=== PATIENT | male | born 1940 | race Caucasian/White ===

== ENCOUNTER 2021-06-09 08:57 | Inpatient (IN) | payer MEDICARE ==
[2021-06-09] MEDS ORDERED: PROVENTIL INHALER 6.7 G (200 INHALATIONS) ONE (09:34)
[2021-06-09] MEDS ORDERED: Albuterol 200 PUFF (6.7GM INHALER) ONE (09:36)
[2021-06-09 10:23] LABS: ALT (SGPT) 37 U/L (8-55); AST (SGOT) 49 U/L (5-34); Albumin 3.4 g/dL (3.4-4.8); Alkaline Phosphatase 43 U/L (40-110); Anion Gap 15 mmol/L (10-20); BUN (Urea Nitrogen) 21 mg/dL (8.4-25.7); Bilirubin, Total 0.5 mg/dL (0.2-1.2); Calc. Creatinine Clearance 0 mL/min (70-130); Calcium 8.7 mg/dL (7.8-10.44); Carbon Dioxide 20 mmol/L (23-31); Chloride 102 mmol/L (98-107); Globulin 3.1 g/dL (2.4-3.5); Glucose 156 mg/dL (83-110); Potassium 4.5 mmol/L (3.5-5.1); Protein, Total 6.5 g/dL (5.8-8.1); Sodium 132 mmol/L (136-145)
[2021-06-09 12:23] LABS: #Lymphocytes 0.8 thou/uL (1.20-3.40); #Monocytes 0.4 thou/uL (0.11-0.59); #Neutrophils 3.5 thou/uL (1.40-6.50); %Basophils 0.6 % (0.0-1.0); %Eosinophils 0.2 % (0.0-10.0); %Lymphocytes 16.1 % (21.0-51.0); %Monocytes 8.3 % (0.0-10.0); %Neutrophils 74.9 % (42.0-75.0); Hemoglobin 14.6 g/dL (14.0-18.0); Mean Corpuscular HGB CONC 33.9 g/dL (32.0-36.0); Mean Corpuscular Hemoglobin 28.7 pg (27.0-31.0); Mean Corpuscular Volume 84.6 fL (78.0-98.0); Mean Platelet Volume 7.9 fL (7.4-10.4); Platelet Count 135 thou/uL (130-400); RBC Distribution Width 12.3 % (11.5-14.5); White Blood Cell (WBC) Count 4.7 thou/uL (4.8-10.8)
[2021-06-09] MEDS ORDERED: Dextrose 50% Abboject 50 ML SYRINGE SLOW IVP PRN (13:13)
[2021-06-09] MEDS ORDERED: Dextrose 5% in Water 1,000 ML IV PRN (13:13)
[2021-06-09] MEDS ORDERED: Metoclopramide HCl 10 MG/2 ML VIAL IVP PRN (13:24)
[2021-06-09] MEDS ORDERED: Albuterol 200 PUFF (6.7GM INHALER) INH PRN (14:53)
[2021-06-09 15:13] LABS: SARS-CoV-2 NAA Rapid Test DETECTED (NotDetected)
[2021-06-09] MEDS: Dexamethasone 4 MG TAB PO SCH (17:17)
[2021-06-09] MEDS ORDERED: Benzonatate 100 MG CAP PO PRN (20:04)
[2021-06-09] MEDS: Famotidine 20 MG TAB PO SCH (20:08)
[2021-06-09] MEDS: Enoxaparin Sodium 40 MG/0.4 ML SYRINGE SC SCH (20:08)
[2021-06-09] MEDS ORDERED: Carvedilol 25 MG TAB PO SCH (21:00)
[2021-06-10] MEDS: HumaLOG 300 UNITS/3 ML VIAL SC PRN ×3 (05:56→22:11)
[2021-06-10 07:04] LABS: Anion Gap 15 mmol/L (10-20); BUN (Urea Nitrogen) 18 mg/dL (8.4-25.7); CRP (Inflammatory) 10.42 mg/dL (= or < 0.5); Calc. Creatinine Clearance 113 mL/min (70-130); Calcium 8.7 mg/dL (7.8-10.44); Carbon Dioxide 24 mmol/L (23-31); Chloride 105 mmol/L (98-107); Glucose 194 mg/dL (83-110); Potassium 4.1 mmol/L (3.5-5.1); Sodium 140 mmol/L (136-145)
[2021-06-10 07:29] LABS: #Lymphocytes 0.6 thou/uL (1.20-3.40); #Monocytes 0.5 thou/uL (0.11-0.59); #Neutrophils 3.6 thou/uL (1.40-6.50); %Basophils 0.2 % (0.0-1.0); %Eosinophils 0.1 % (0.0-10.0); %Lymphocytes 12.8 % (21.0-51.0); %Monocytes 10.2 % (0.0-10.0); %Neutrophils 76.7 % (42.0-75.0); Hemoglobin 14.9 g/dL (14.0-18.0); Mean Corpuscular HGB CONC 33.7 g/dL (32.0-36.0); Mean Corpuscular Hemoglobin 29.1 pg (27.0-31.0); Mean Corpuscular Volume 86.3 fL (78.0-98.0); Mean Platelet Volume 8.3 fL (7.4-10.4); Platelet Count 124 thou/uL (130-400); RBC Distribution Width 12.5 % (11.5-14.5); Red Blood Cell (RBC) Count 5.13 mill/uL (4.70-6.10); White Blood Cell (WBC) Count 4.7 thou/uL (4.8-10.8)
[2021-06-10] MEDS: Enoxaparin Sodium 40 MG/0.4 ML SYRINGE SC SCH ×2 (07:41→21:13)
[2021-06-10] MEDS: Carvedilol 25 MG TAB PO SCH ×2 (07:41→16:05)
[2021-06-10] MEDS: Famotidine 20 MG TAB PO SCH ×2 (07:41→21:12)
[2021-06-10] MEDS: Dexamethasone 4 MG TAB PO SCH (16:05)
[2021-06-11] MEDS: HumaLOG 300 UNITS/3 ML VIAL SC PRN ×2 (05:08→13:13)
[2021-06-11 05:27] LABS: ALT (SGPT) 50 U/L (8-55); AST (SGOT) 55 U/L (5-34); Albumin 3.4 g/dL (3.4-4.8); Alkaline Phosphatase 47 U/L (40-110); Anion Gap 12 mmol/L (10-20); BUN (Urea Nitrogen) 21 mg/dL (8.4-25.7); Bilirubin, Total 0.6 mg/dL (0.2-1.2); CRP (Inflammatory) 8.42 mg/dL (= or < 0.5); Calc. Creatinine Clearance 97 mL/min (70-130); Calcium 8.9 mg/dL (7.8-10.44); Carbon Dioxide 29 mmol/L (23-31); Chloride 101 mmol/L (98-107); Glucose 277 mg/dL (83-110); Potassium 4.4 mmol/L (3.5-5.1); Protein, Total 6.4 g/dL (5.8-8.1); Sodium 138 mmol/L (136-145)
[2021-06-11] MEDS ORDERED: Loperamide HCl 2 MG CAP PO PRN (07:31)
[2021-06-11] MEDS ORDERED: Cepastat Lozenges 1 LOZ PO PRN (07:31)
[2021-06-11] MEDS ORDERED: Sodium Chloride 0.65% Nasal 44 ML BOT EA NARE PRN (07:31)
[2021-06-11] MEDS ORDERED: Calcium Carbonate 500 MG ChewTAB PO PRN (07:31)
[2021-06-11] MEDS ORDERED: Loratadine 10 MG TAB PO PRN (07:31)
[2021-06-11] MEDS ORDERED: Ondansetron PF 4 MG/2 ML Vial IVP PRN (07:31)
[2021-06-11] MEDS ORDERED: GUAIFENESIN SF SOLN 200 MG/10 ML UDCUP PO PRN (07:31)
[2021-06-11] MEDS ORDERED: Ondansetron ODT 4 MG TAB PO PRN (07:31)
[2021-06-11] MEDS ORDERED: HYDROcodone/Acetaminophen 5/325 mg Tablet PO PRN (07:31)
[2021-06-11] MEDS ORDERED: Senokot S 8.6-50 MG TAB PO PRN (07:31)
[2021-06-11] MEDS ORDERED: Bisacodyl 5 MG TAB PO PRN (07:31)
[2021-06-11] MEDS ORDERED: hydrALAZINE 20 MG/ML VIAL SLOW IVP PRN (07:31)
[2021-06-11] MEDS ORDERED: Hydrocerin (Eucerin) Cream 120 gm Jar TOP PRN (07:31)
[2021-06-11] MEDS ORDERED: Melatonin 3 MG TAB PO PRN (07:32)
[2021-06-11] MEDS ORDERED: Fluticasone Propionate Nasal Spray 16 gm Bottle NASAL PRN (07:32)
[2021-06-11] MEDS: Carvedilol 25 MG TAB PO SCH ×3 (08:56→17:27)
[2021-06-11] MEDS: Ascorbic Acid 500 mg Chewable Tablet PO SCH (08:56)
[2021-06-11] MEDS: Zinc Sulfate 220 MG CAP PO SCH (08:56)
[2021-06-11] MEDS: Cholecalciferol 1,000 UNITS (25 MCG) TAB PO SCH (08:56)
[2021-06-11] MEDS: Enoxaparin Sodium 40 MG/0.4 ML SYRINGE SC SCH (08:57)
[2021-06-11] MEDS: Vitamin E 400 UNITS CAP PO SCH (09:12)
[2021-06-11] MEDS ORDERED: Furosemide 20 MG/2 ML VIAL SLOW IVP SCH (10:15)
[2021-06-11] MEDS: cefTRIAXone\\ROCEPHIN 1 GM in Sodium Chloride 0.9% 100 ML IVPB SCH (11:34)
[2021-06-11] MEDS: Albuterol 200 PUFF (6.7GM INHALER) INH SCH ×4 (16:35→23:02)
[2021-06-11] MEDS: Gemfibrozil 600 MG TAB PO SCH ×2 (16:35→17:27)
[2021-06-11] MEDS: Mometasone 200 MCG/Formoterol 5 MCG 120 PUFF INHALER INH SCH ×2 (16:36→17:27)
[2021-06-11] MEDS ORDERED: NPH, Human Insulin Isophane 300 UNIT/3 ML VIAL SC SCH (21:00)
[2021-06-11] MEDS: guaiFENesin ER 600 MG TAB PO SCH (21:39)
[2021-06-11] MEDS: Doxycycline 100 MG CAP PO SCH (21:39)
[2021-06-11] MEDS: Lorazepam 2 MG/ML VIAL SLOW IVP PRN (21:41)
[2021-06-11] MEDS: NPH, Human Insulin Isophane 300 UNIT/3 ML VIAL SC SCH (21:57)
[2021-06-12] MEDS: Albuterol 200 PUFF (6.7GM INHALER) INH SCH ×4 (04:16→20:11)
[2021-06-12] MEDS: Lorazepam 2 MG/ML VIAL SLOW IVP PRN (05:36)
[2021-06-12] MEDS: HumaLOG 300 UNITS/3 ML VIAL SC PRN (05:37)
[2021-06-12] MEDS: Mometasone 200 MCG/Formoterol 5 MCG 120 PUFF INHALER INH SCH ×2 (05:46→20:12)
[2021-06-12 06:25] LABS: #Lymphocytes 0.7 thou/uL (1.20-3.40); #Monocytes 0.6 thou/uL (0.11-0.59); #Neutrophils 6.7 thou/uL (1.40-6.50); %Lymphocytes 8.9 % (21.0-51.0); %Monocytes 7.6 % (0.0-10.0); %Neutrophils 83.4 % (42.0-75.0); Hemoglobin 15.2 g/dL (14.0-18.0); Mean Corpuscular HGB CONC 31.9 g/dL (32.0-36.0); Mean Corpuscular Hemoglobin 27.7 pg (27.0-31.0); Mean Corpuscular Volume 86.7 fL (78.0-98.0); Mean Platelet Volume 7.5 fL (7.4-10.4); Platelet Count 220 thou/uL (130-400); RBC Distribution Width 12.4 % (11.5-14.5)
[2021-06-12 06:50] LABS: ALT (SGPT) 59 U/L (8-55); AST (SGOT) 59 U/L (5-34); Albumin 3.4 g/dL (3.4-4.8); Alkaline Phosphatase 50 U/L (40-110); Anion Gap 15 mmol/L (10-20); BUN (Urea Nitrogen) 20 mg/dL (8.4-25.7); Bilirubin, Total 0.8 mg/dL (0.2-1.2); Calc. Creatinine Clearance 101 mL/min (70-130); Calcium 9.1 mg/dL (7.8-10.44); Carbon Dioxide 27 mmol/L (23-31); Chloride 103 mmol/L (98-107); Globulin 3.2 g/dL (2.4-3.5); Glucose 226 mg/dL (83-110); Magnesium 2.4 mg/dL (1.6-2.6); Potassium 3.9 mmol/L (3.5-5.1); Protein, Total 6.6 g/dL (5.8-8.1); Sodium 141 mmol/L (136-145)
[2021-06-12 07:36] LABS: Actual Bicarbonate (HCO3a) 29.4 mEq/L (22-28); Base Excess (BEa) 6.4 mEq/L (-2.0 to +3.0); CO2 Tension 37.1 mmHg (35.0-45.0); Carboxyhemoglobin (COHb) 0.7 gm% (0.0-3.0); Hemoglobin (Hb) 16.3 g/dL (14.0-18.0); Potassium - ABG Lab 3.74 mmol/L (3.70-5.30); pH, Arterial 7.52 (7.35-7.45)
[2021-06-12 07:37] LABS: O2 Tension (PaO2), arterial 45.6 mmHg (> 70.0)
[2021-06-12 07:38] LABS: ALV-art Gradient 485.555 mmHg (0-20); Puncture Site LRA
[2021-06-12] MEDS ORDERED: Dexamethasone 4 mg/ml Vial SLOW IVP SCH (09:00)
[2021-06-12] MEDS ORDERED: Alogliptin 25 MG TAB PO SCH (09:00)
[2021-06-12] MEDS: Ascorbic Acid 500 mg Chewable Tablet PO SCH (09:10)
[2021-06-12] MEDS: Doxycycline 100 MG CAP PO SCH ×2 (09:10→21:10)
[2021-06-12] MEDS: Carvedilol 25 MG TAB PO SCH ×2 (09:10→20:32)
[2021-06-12] MEDS: Zinc Sulfate 220 MG CAP PO SCH (09:10)
[2021-06-12] MEDS: Cholecalciferol 1,000 UNITS (25 MCG) TAB PO SCH (09:11)
[2021-06-12] MEDS: Gemfibrozil 600 MG TAB PO SCH ×2 (09:11→16:30)
[2021-06-12] MEDS: Enoxaparin Sodium 40 MG/0.4 ML SYRINGE SC SCH (09:12)
[2021-06-12] MEDS: NPH, Human Insulin Isophane 300 UNIT/3 ML VIAL SC SCH (09:16)
[2021-06-12] MEDS: Vitamin E 400 UNITS CAP PO SCH (09:16)
[2021-06-12] MEDS: guaiFENesin ER 600 MG TAB PO SCH ×2 (09:17→21:06)
[2021-06-12] MEDS: Acetaminophen 325 MG TAB PO PRN (09:23)
[2021-06-12 11:37] LABS: Actual Bicarbonate (HCO3a) 28.9 mEq/L (22-28); CO2 Tension 36.6 mmHg (35.0-45.0); Calcium, Ionized (arterial) 1.13 mmol/L (1.12-1.30); Carboxyhemoglobin (COHb) 0.5 gm% (0.0-3.0); Hemoglobin (Hb) 16.1 g/dL (14.0-18.0); O2 Tension (PaO2), arterial 55.5 mmHg (> 70.0); Potassium - ABG Lab 3.73 mmol/L (3.70-5.30); pH, Arterial 7.52 (7.35-7.45)
[2021-06-12 11:38] LABS: Puncture Site LBA
[2021-06-12] MEDS: cefTRIAXone\\ROCEPHIN 1 GM in Sodium Chloride 0.9% 100 ML IVPB SCH (13:03)
[2021-06-12] MEDS ORDERED: NPH, Human Insulin Isophane 300 UNIT/3 ML VIAL SC SCH (15:33)
[2021-06-12] MEDS ORDERED: Electrolyte Replacement Protocol 1 EACH FS SCH (16:30)
[2021-06-12] MEDS ORDERED: Lactated Ringer's 500 ML IV SCH (16:30)
[2021-06-12] MEDS: Dextrose 5%-Lactated Ringers 1,000 ML IV SCH ×2 (16:30→19:36)
[2021-06-12] MEDS ORDERED: Electrolyte Replacement Protocol FS PRN (17:15)
[2021-06-12] MEDS ORDERED: Succinylcholine 200 MG/10 ml SYRINGE FS ONE (18:00)
[2021-06-12] MEDS ORDERED: PROPOFOL 200 MG/20 ML VIAL ONE (18:00)
[2021-06-12] MEDS ORDERED: Insulin Regular 300 UNITS/3 ML VIAL SC PRN (18:15)
[2021-06-12] MEDS ORDERED: Insulin Regular 300 UNITS/3 ML VIAL SC SCH (18:15)
[2021-06-12] MEDS ORDERED: Vecuronium 10 MG VIAL ONE (19:02)
[2021-06-12] MEDS: Vecuronium Bromide 50 MG in Sodium Chloride 0.9% 250 ML 250 ML IV SCH (19:14)
[2021-06-12] MEDS: Cefepime 1 GM in Sodium Chloride 0.9% 100 ML IVPB SCH (19:17)
[2021-06-12] MEDS: Lactated Ringer's 1,000 ML IV SCH (19:44)
[2021-06-12 19:52] LABS: Actual Bicarbonate (HCO3a) 26.2 mEq/L (22-28); Base Excess (BEa) 1.7 mEq/L (-2.0 to +3.0); CO2 Tension 40.7 mmHg (35.0-45.0); Calcium, Ionized (arterial) 1.09 mmol/L (1.12-1.30); Carboxyhemoglobin (COHb) 0.5 gm% (0.0-3.0); Hemoglobin (Hb) 14.9 g/dL (14.0-18.0); O2 Tension (PaO2), arterial 62.9 mmHg (> 70.0); Potassium - ABG Lab 3.72 mmol/L (3.70-5.30); Puncture Site LBA; pH, Arterial 7.43 (7.35-7.45)
[2021-06-12 19:53] LABS: ALV-art Gradient 527.925 mmHg (0-20)
[2021-06-12] MEDS ORDERED: Famotidine 20 MG TAB PO SCH (21:00)
[2021-06-12] MEDS ORDERED: Acetylcysteine 10% 100 MG/ML 30 ml Vial PO SCH (21:00)
[2021-06-12] MEDS: Insulin Regular 300 UNITS/3 ML VIAL SC SCH (22:05)
[2021-06-12] MEDS: Propofol 1,000 MG/100 ML VIAL IV PRN (22:57)
[2021-06-12] MEDS: BARICITINIB 1 MG TAB PO SCH (23:02)
[2021-06-12 23:10] LABS: Legionella Urinary Ag Negative (Negative); Strep pneumo Urine Ag NEGATIVE (NEGATIVE)
[2021-06-13] MEDS: Insulin Regular 300 UNITS/3 ML VIAL SC SCH ×3 (03:36→09:50)
[2021-06-13] MEDS: Dextrose 5%-Lactated Ringers 1,000 ML IV SCH (03:44)
[2021-06-13 04:25] LABS: #Basophils 0.1 thou/uL (0.0-0.2); #Lymphocytes 1.1 thou/uL (1.20-3.40); #Monocytes 0.6 thou/uL (0.11-0.59); #Neutrophils 5.2 thou/uL (1.40-6.50); %Basophils 1.8 % (0.0-1.0); %Eosinophils 0.1 % (0.0-10.0); %Lymphocytes 15.3 % (21.0-51.0); %Monocytes 8.7 % (0.0-10.0); %Neutrophils 74.1 % (42.0-75.0); Hemoglobin 14.6 g/dL (14.0-18.0); Mean Corpuscular HGB CONC 32.8 g/dL (32.0-36.0); Mean Corpuscular Hemoglobin 28.7 pg (27.0-31.0); Mean Corpuscular Volume 87.3 fL (78.0-98.0); Mean Platelet Volume 7.9 fL (7.4-10.4); Platelet Count 200 thou/uL (130-400); RBC Distribution Width 12.4 % (11.5-14.5); Red Blood Cell (RBC) Count 5.09 mill/uL (4.70-6.10)
[2021-06-13] MEDS: Propofol 1,000 MG/100 ML VIAL IV PRN ×3 (04:32→16:32)
[2021-06-13 04:47] LABS: Magnesium 2.6 mg/dL (1.6-2.6); Phosphorus 2.7 mg/dL (2.3-4.7)
[2021-06-13] MEDS: Cefepime 1 GM in Sodium Chloride 0.9% 100 ML IVPB SCH ×2 (06:24→17:40)
[2021-06-13] MEDS: Mometasone 200 MCG/Formoterol 5 MCG 120 PUFF INHALER INH SCH ×2 (07:30→19:26)
[2021-06-13 07:56] LABS: Actual Bicarbonate (HCO3a) 23.5 mEq/L (22-28); Base Excess (BEa) 1.3 mEq/L (-2.0 to +3.0); CO2 Tension 30.7 mmHg (35.0-45.0); Calcium, Ionized (arterial) 1.17 mmol/L (1.12-1.30); Carboxyhemoglobin (COHb) 0.7 gm% (0.0-3.0); Hemoglobin (Hb) 14.9 g/dL (14.0-18.0); O2 Tension (PaO2), arterial 69.6 mmHg (> 70.0)
[2021-06-13 08:00] LABS: Puncture Site RRA
[2021-06-13] MEDS: Carvedilol 25 MG TAB PO SCH (08:00)
[2021-06-13 08:01] LABS: ALV-art Gradient 177.225 mmHg (0-20)
[2021-06-13] MEDS: guaiFENesin ER 600 MG TAB PO SCH ×2 (09:00→19:59)
[2021-06-13] MEDS ORDERED: Dexamethasone 10 MG/ML VIAL SLOW IVP SCH (09:00)
[2021-06-13] MEDS: Lactated Ringer's 1,000 ML IV SCH ×2 (09:40→19:59)
[2021-06-13] MEDS: Enoxaparin Sodium 40 MG/0.4 ML SYRINGE SC SCH ×2 (09:45→09:48)
[2021-06-13] MEDS: Dexamethasone 4 mg/ml Vial SLOW IVP SCH (09:45)
[2021-06-13] MEDS: Famotidine/PF 20 mg/2ml Vial SLOW IVP SCH (09:46)
[2021-06-13] MEDS: Ascorbic Acid 500 mg Chewable Tablet PO SCH (09:46)
[2021-06-13] MEDS: Doxycycline 100 MG CAP PO SCH ×2 (09:47→19:59)
[2021-06-13] MEDS: Folic Acid 1 MG TAB PO SCH (09:47)
[2021-06-13] MEDS: Zinc Sulfate 220 MG CAP PO SCH (09:47)
[2021-06-13] MEDS: Cholecalciferol 1,000 UNITS (25 MCG) TAB PO SCH (09:48)
[2021-06-13] MEDS: Gemfibrozil 600 MG TAB PO SCH ×2 (09:48→16:39)
[2021-06-13] MEDS: NPH, Human Insulin Isophane 300 UNIT/3 ML VIAL SC SCH ×2 (09:49→20:00)
[2021-06-13] MEDS: Vitamin E 400 UNITS CAP PO SCH (10:43)
[2021-06-13 11:19] LABS: Actual Bicarbonate (HCO3a) 27.4 mEq/L (22-28); Base Excess (BEa) 2.8 mEq/L (-2.0 to +3.0); CO2 Tension 41.7 mmHg (35.0-45.0); Calcium, Ionized (arterial) 1.17 mmol/L (1.12-1.30); Carboxyhemoglobin (COHb) 0.7 gm% (0.0-3.0); Hemoglobin (Hb) 14.6 g/dL (14.0-18.0); O2 Tension (PaO2), arterial 75.4 mmHg (> 70.0); pH, Arterial 7.44 (7.35-7.45)
[2021-06-13 13:32] LABS: Puncture Site LRA
[2021-06-13 13:33] LABS: ALV-art Gradient 157.675 mmHg (0-20)
[2021-06-13] MEDS ORDERED: Dextrose 50% Abboject 50 ML SYRINGE SLOW IVP PRN (19:29)
[2021-06-13] MEDS ORDERED: Dextrose 5% in Water 1,000 ML IV PRN (19:29)
[2021-06-13] MEDS: Vecuronium Bromide 50 MG in Sodium Chloride 0.9% 250 ML 250 ML IV SCH (19:59)
[2021-06-13] MEDS: HumaLOG 300 UNITS/3 ML VIAL SC PRN (20:11)
[2021-06-13] MEDS: BARICITINIB 1 MG TAB PO SCH (23:56)
[2021-06-14] MEDS: Propofol 1,000 MG/100 ML VIAL IV PRN ×5 (00:16→20:43)
[2021-06-14] MEDS: Carvedilol 25 MG TAB PO SCH ×3 (00:34→15:57)
[2021-06-14] MEDS: HumaLOG 300 UNITS/3 ML VIAL SC PRN ×5 (01:07→20:02)
[2021-06-14 04:25] LABS: #Lymphocytes 0.8 thou/uL (1.20-3.40); #Monocytes 0.6 thou/uL (0.11-0.59); #Neutrophils 7.5 thou/uL (1.40-6.50); %Eosinophils 0.2 % (0.0-10.0); %Lymphocytes 9.3 % (21.0-51.0); %Monocytes 6.3 % (0.0-10.0); %Neutrophils 84.3 % (42.0-75.0); Hemoglobin 13.7 g/dL (14.0-18.0); Mean Corpuscular HGB CONC 32.6 g/dL (32.0-36.0); Mean Corpuscular Hemoglobin 28.5 pg (27.0-31.0); Mean Corpuscular Volume 87.5 fL (78.0-98.0); Mean Platelet Volume 7.6 fL (7.4-10.4); Platelet Count 241 thou/uL (130-400); RBC Distribution Width 12.3 % (11.5-14.5); Red Blood Cell (RBC) Count 4.81 mill/uL (4.70-6.10); White Blood Cell (WBC) Count 8.9 thou/uL (4.8-10.8)
[2021-06-14 04:48] LABS: Anion Gap 12 mmol/L (10-20); BUN (Urea Nitrogen) 28 mg/dL (8.4-25.7); Calc. Creatinine Clearance 108 mL/min (70-130); Calcium 8.6 mg/dL (7.8-10.44); Carbon Dioxide 27 mmol/L (23-31); Chloride 107 mmol/L (98-107); Glucose 319 mg/dL (83-110); Magnesium 2.6 mg/dL (1.6-2.6); Phosphorus 3.6 mg/dL (2.3-4.7); Sodium 142 mmol/L (136-145)
[2021-06-14] MEDS: Cefepime 1 GM in Sodium Chloride 0.9% 100 ML IVPB SCH (05:17)
[2021-06-14] MEDS: Mometasone 200 MCG/Formoterol 5 MCG 120 PUFF INHALER INH SCH ×2 (07:54→18:52)
[2021-06-14] MEDS: Ascorbic Acid 500 mg Chewable Tablet PO SCH (08:02)
[2021-06-14] MEDS: Folic Acid 1 MG TAB PO SCH (08:02)
[2021-06-14] MEDS: Gemfibrozil 600 MG TAB PO SCH ×2 (08:02→15:57)
[2021-06-14] MEDS: Cholecalciferol 1,000 UNITS (25 MCG) TAB PO SCH (08:02)
[2021-06-14] MEDS: Zinc Sulfate 220 MG CAP PO SCH (08:02)
[2021-06-14] MEDS: guaiFENesin ER 600 MG TAB PO SCH (08:02)
[2021-06-14] MEDS: Famotidine/PF 20 mg/2ml Vial SLOW IVP SCH (08:03)
[2021-06-14] MEDS: Dexamethasone 4 mg/ml Vial SLOW IVP SCH (08:03)
[2021-06-14] MEDS: Doxycycline 100 MG CAP PO SCH (08:03)
[2021-06-14] MEDS: Enoxaparin Sodium 40 MG/0.4 ML SYRINGE SC SCH ×2 (08:04)
[2021-06-14] MEDS: Vitamin E 400 UNITS CAP PO SCH (08:05)
[2021-06-14] MEDS: NPH, Human Insulin Isophane 300 UNIT/3 ML VIAL SC SCH ×2 (08:06→19:37)
[2021-06-14] MEDS: Lactated Ringer's 1,000 ML IV SCH ×2 (08:08→12:42)
[2021-06-14 12:10] LABS: Actual Bicarbonate (HCO3a) 29.5 mEq/L (22-28); Base Excess (BEa) 3.5 mEq/L (-2.0 to +3.0); Calcium, Ionized (arterial) 1.16 mmol/L (1.12-1.30); Carboxyhemoglobin (COHb) 0.5 gm% (0.0-3.0); Hemoglobin (Hb) 14.1 g/dL (14.0-18.0); Potassium - ABG Lab 4.37 mmol/L (3.70-5.30); pH, Arterial 7.39 (7.35-7.45)
[2021-06-14 14:11] LABS: Puncture Site LRA
[2021-06-14] MEDS: Vecuronium Bromide 50 MG in Sodium Chloride 0.9% 250 ML 250 ML IV SCH (21:28)
[2021-06-14] MEDS: BARICITINIB 1 MG TAB PO SCH (23:04)
[2021-06-15] MEDS: HumaLOG 300 UNITS/3 ML VIAL SC PRN ×4 (01:05→15:44)
[2021-06-15] MEDS: Propofol 1,000 MG/100 ML VIAL IV PRN ×5 (01:52→19:49)
[2021-06-15] MEDS: Lactated Ringer's 1,000 ML IV SCH (02:33)
[2021-06-15 04:00] LABS: #Lymphocytes 1.2 thou/uL (1.20-3.40); #Monocytes 0.6 thou/uL (0.11-0.59); #Neutrophils 5.2 thou/uL (1.40-6.50); %Basophils 0.1 % (0.0-1.0); %Eosinophils 0.3 % (0.0-10.0); %Lymphocytes 16.6 % (21.0-51.0); %Monocytes 9.1 % (0.0-10.0); Hemoglobin 13.1 g/dL (14.0-18.0); Mean Corpuscular Hemoglobin 30.2 pg (27.0-31.0); Mean Corpuscular Volume 88.7 fL (78.0-98.0); Mean Platelet Volume 7.4 fL (7.4-10.4); Platelet Count 232 thou/uL (130-400); RBC Distribution Width 12.2 % (11.5-14.5); Red Blood Cell (RBC) Count 4.34 mill/uL (4.70-6.10)
[2021-06-15 04:19] LABS: ALT (SGPT) 47 U/L (8-55); AST (SGOT) 25 U/L (5-34); Albumin 2.5 g/dL (3.4-4.8); Alkaline Phosphatase 45 U/L (40-110); Anion Gap 9 mmol/L (10-20); BUN (Urea Nitrogen) 25 mg/dL (8.4-25.7); Bilirubin, Total 0.3 mg/dL (0.2-1.2); Calc. Creatinine Clearance 98 mL/min (70-130); Calcium 8.3 mg/dL (7.8-10.44); Carbon Dioxide 31 mmol/L (23-31); Chloride 108 mmol/L (98-107); Globulin 2.7 g/dL (2.4-3.5); Glucose 216 mg/dL (83-110); Magnesium 2.3 mg/dL (1.6-2.6); Phosphorus 2.8 mg/dL (2.3-4.7); Potassium 4.2 mmol/L (3.5-5.1); Protein, Total 5.2 g/dL (5.8-8.1); Sodium 144 mmol/L (136-145)
[2021-06-15] MEDS: Mometasone 200 MCG/Formoterol 5 MCG 120 PUFF INHALER INH SCH ×2 (06:24→18:37)
[2021-06-15 06:47] LABS: Actual Bicarbonate (HCO3a) 30.9 mEq/L (22-28); CO2 Tension 51.1 mmHg (35.0-45.0); Calcium, Ionized (arterial) 1.18 mmol/L (1.12-1.30); Carboxyhemoglobin (COHb) 0.3 gm% (0.0-3.0); Hemoglobin (Hb) 13.8 g/dL (14.0-18.0); O2 Tension (PaO2), arterial 96.7 mmHg (> 70.0); Potassium - ABG Lab 3.99 mmol/L (3.70-5.30)
[2021-06-15 06:57] LABS: Puncture Site RRA
[2021-06-15 06:58] LABS: ALV-art Gradient 195.925 mmHg (0-20)
[2021-06-15] MEDS: Carvedilol 25 MG TAB PO SCH ×2 (07:01→16:02)
[2021-06-15] MEDS: Zinc Sulfate 220 MG CAP PO SCH (08:02)
[2021-06-15] MEDS: Vitamin E 400 UNITS CAP PO SCH (08:02)
[2021-06-15] MEDS: Ascorbic Acid 500 mg Chewable Tablet PO SCH (08:02)
[2021-06-15] MEDS: Gemfibrozil 600 MG TAB PO SCH ×2 (08:02→15:44)
[2021-06-15] MEDS: Folic Acid 1 MG TAB PO SCH (08:02)
[2021-06-15] MEDS: Enoxaparin Sodium 40 MG/0.4 ML SYRINGE SC SCH (08:02)
[2021-06-15] MEDS: Dexamethasone 4 mg/ml Vial SLOW IVP SCH (08:03)
[2021-06-15] MEDS: Famotidine/PF 20 mg/2ml Vial SLOW IVP SCH ×2 (08:03→20:48)
[2021-06-15] MEDS: NPH, Human Insulin Isophane 300 UNIT/3 ML VIAL SC SCH ×2 (08:05→20:46)
[2021-06-16] MEDS: BARICITINIB 2 MG TAB PO SCH (00:51)
[2021-06-16] MEDS: HumaLOG 300 UNITS/3 ML VIAL SC PRN ×2 (01:18→04:21)
[2021-06-16 03:51] LABS: ALT (SGPT) 49 U/L (8-55); AST (SGOT) 31 U/L (5-34); Albumin 2.4 g/dL (3.4-4.8); Alkaline Phosphatase 47 U/L (40-110); Anion Gap 11 mmol/L (10-20); BUN (Urea Nitrogen) 22 mg/dL (8.4-25.7); Bilirubin, Total 0.4 mg/dL (0.2-1.2); Calc. Creatinine Clearance 118 mL/min (70-130); Calcium 8.4 mg/dL (7.8-10.44); Carbon Dioxide 29 mmol/L (23-31); Chloride 108 mmol/L (98-107); Globulin 3.1 g/dL (2.4-3.5); Glucose 155 mg/dL (83-110); Magnesium 2.2 mg/dL (1.6-2.6); Phosphorus 2.3 mg/dL (2.3-4.7); Potassium 4.6 mmol/L (3.5-5.1); Protein, Total 5.5 g/dL (5.8-8.1); Sodium 143 mmol/L (136-145)
[2021-06-16] MEDS: Propofol 1,000 MG/100 ML VIAL IV PRN ×3 (04:23→20:55)
[2021-06-16 04:34] LABS: #Eosinphils 0.1 thou/uL (0.0-0.7); #Lymphocytes 1.2 thou/uL (1.20-3.40); #Monocytes 0.6 thou/uL (0.11-0.59); #Neutrophils 6.9 thou/uL (1.40-6.50); %Basophils 0.1 % (0.0-1.0); %Eosinophils 0.7 % (0.0-10.0); %Lymphocytes 13.5 % (21.0-51.0); %Monocytes 6.5 % (0.0-10.0); %Neutrophils 79.2 % (42.0-75.0); Hemoglobin 13.8 g/dL (14.0-18.0); Mean Corpuscular Hemoglobin 29.4 pg (27.0-31.0); Mean Platelet Volume 8.8 fL (7.4-10.4); Platelet Count 174 thou/uL (130-400); RBC Distribution Width 12.3 % (11.5-14.5); RBC Morphology Normal; Red Blood Cell (RBC) Count 4.69 mill/uL (4.70-6.10); White Blood Cell (WBC) Count 8.7 thou/uL (4.8-10.8)
[2021-06-16] MEDS: Mometasone 200 MCG/Formoterol 5 MCG 120 PUFF INHALER INH SCH ×2 (07:43→19:22)
[2021-06-16] MEDS: Ascorbic Acid 500 mg Chewable Tablet PO SCH (08:30)
[2021-06-16] MEDS: Enoxaparin Sodium 40 MG/0.4 ML SYRINGE SC SCH (08:30)
[2021-06-16] MEDS: NPH, Human Insulin Isophane 300 UNIT/3 ML VIAL SC SCH ×2 (08:30→21:02)
[2021-06-16] MEDS: Folic Acid 1 MG TAB PO SCH (08:30)
[2021-06-16] MEDS: Dexamethasone 4 mg/ml Vial SLOW IVP SCH (08:30)
[2021-06-16] MEDS: Carvedilol 25 MG TAB PO SCH ×2 (08:30→16:04)
[2021-06-16] MEDS: Vitamin E 400 UNITS CAP PO SCH (08:30)
[2021-06-16] MEDS: Zinc Sulfate 220 MG CAP PO SCH (08:30)
[2021-06-16 08:37] LABS: Actual Bicarbonate (HCO3a) 33.5 mEq/L (22-28); Base Excess (BEa) 9.3 mEq/L (-2.0 to +3.0); CO2 Tension 43.6 mmHg (35.0-45.0); Calcium, Ionized (arterial) 1.14 mmol/L (1.12-1.30); Carboxyhemoglobin (COHb) 0.7 gm% (0.0-3.0); Potassium - ABG Lab 3.81 mmol/L (3.70-5.30)
[2021-06-16 08:39] LABS: O2 Tension (PaO2), arterial 50.7 mmHg (> 70.0); Puncture Site LRA
[2021-06-16] MEDS: Famotidine/PF 20 mg/2ml Vial SLOW IVP SCH ×2 (10:00→10:40)
[2021-06-16] MEDS: Gemfibrozil 600 MG TAB PO SCH (10:22)
[2021-06-16] MEDS ORDERED: Famotidine 20 MG TAB PO SCH (10:45)
[2021-06-16 15:56] LABS: Actual Bicarbonate (HCO3a) 32.6 mEq/L (22-28); Base Excess (BEa) 8.3 mEq/L (-2.0 to +3.0); CO2 Tension 43.4 mmHg (35.0-45.0); Calcium, Ionized (arterial) 1.12 mmol/L (1.12-1.30); Carboxyhemoglobin (COHb) 0.5 gm% (0.0-3.0); Hemoglobin (Hb) 14.1 g/dL (14.0-18.0); O2 Tension (PaO2), arterial 63.2 mmHg (> 70.0); Potassium - ABG Lab 4.26 mmol/L (3.70-5.30); pH, Arterial 7.49 (7.35-7.45)
[2021-06-16 15:58] LABS: Puncture Site LRA
[2021-06-16] MEDS: Acetaminophen 325 MG TAB PO PRN (20:54)
[2021-06-16] MEDS: Famotidine 20 MG TAB PO SCH (20:55)
[2021-06-17] MEDS: BARICITINIB 2 MG TAB PO SCH (00:48)
[2021-06-17] MEDS: HumaLOG 300 UNITS/3 ML VIAL SC PRN ×2 (00:48→12:57)
[2021-06-17] MEDS: Propofol 1,000 MG/100 ML VIAL IV PRN ×4 (02:42→20:57)
[2021-06-17 04:15] LABS: #Lymphocytes 1.1 thou/uL (1.20-3.40); #Monocytes 0.4 thou/uL (0.11-0.59); #Neutrophils 8.4 thou/uL (1.40-6.50); %Basophils 0.1 % (0.0-1.0); %Eosinophils 0.5 % (0.0-10.0); %Lymphocytes 11.1 % (21.0-51.0); %Monocytes 3.8 % (0.0-10.0); %Neutrophils 84.5 % (42.0-75.0); Hemoglobin 12.2 g/dL (14.0-18.0); Mean Corpuscular HGB CONC 33.5 g/dL (32.0-36.0); Mean Corpuscular Hemoglobin 29.6 pg (27.0-31.0); Mean Corpuscular Volume 88.6 fL (78.0-98.0); Mean Platelet Volume 7.9 fL (7.4-10.4); Platelet Count 255 thou/uL (130-400); RBC Distribution Width 12.1 % (11.5-14.5); Red Blood Cell (RBC) Count 4.13 mill/uL (4.70-6.10)
[2021-06-17 04:34] LABS: Anion Gap 10 mmol/L (10-20); BUN (Urea Nitrogen) 24 mg/dL (8.4-25.7); Calc. Creatinine Clearance 111 mL/min (70-130); Calcium 8.5 mg/dL (7.8-10.44); Carbon Dioxide 31 mmol/L (23-31); Chloride 104 mmol/L (98-107); Glucose 198 mg/dL (83-110); Sodium 141 mmol/L (136-145)
[2021-06-17] MEDS: Mometasone 200 MCG/Formoterol 5 MCG 120 PUFF INHALER INH SCH ×2 (08:09→19:02)
[2021-06-17] MEDS: Carvedilol 25 MG TAB PO SCH ×2 (08:38→16:30)
[2021-06-17] MEDS: Dexamethasone 4 mg/ml Vial SLOW IVP SCH (08:38)
[2021-06-17] MEDS: Ascorbic Acid 500 mg Chewable Tablet PO SCH (08:39)
[2021-06-17] MEDS: Zinc Sulfate 220 MG CAP PO SCH (08:40)
[2021-06-17] MEDS: Enoxaparin Sodium 40 MG/0.4 ML SYRINGE SC SCH (08:45)
[2021-06-17] MEDS: Folic Acid 1 MG TAB PO SCH (08:46)
[2021-06-17] MEDS: Famotidine 20 MG TAB PO SCH ×2 (08:48→20:15)
[2021-06-17] MEDS: NPH, Human Insulin Isophane 300 UNIT/3 ML VIAL SC SCH ×2 (08:49→20:15)
[2021-06-17] MEDS ORDERED: Furosemide 40 MG/4 ML VIAL SLOW IVP SCH (10:45)
[2021-06-17 11:30] LABS: Actual Bicarbonate (HCO3a) 33.1 mEq/L (22-28); Base Excess (BEa) 9.3 mEq/L (-2.0 to +3.0); CO2 Tension 41.7 mmHg (35.0-45.0); Calcium, Ionized (arterial) 1.14 mmol/L (1.12-1.30); Carboxyhemoglobin (COHb) 0.5 gm% (0.0-3.0); Hemoglobin (Hb) 13.4 g/dL (14.0-18.0); Potassium - ABG Lab 4.04 mmol/L (3.70-5.30); pH, Arterial 7.52 (7.35-7.45)
[2021-06-17 11:31] LABS: O2 Tension (PaO2), arterial 48.9 mmHg (> 70.0); Puncture Site RRA
[2021-06-17 11:32] LABS: ALV-art Gradient 184.175 mmHg (0-20)
[2021-06-17] MEDS: Vitamin E 400 UNITS CAP PO SCH (11:44)
[2021-06-18] MEDS: BARICITINIB 2 MG TAB PO SCH ×2 (00:09→23:50)
[2021-06-18] MEDS: HumaLOG 300 UNITS/3 ML VIAL SC PRN ×4 (01:30→19:14)
[2021-06-18] MEDS: Propofol 1,000 MG/100 ML VIAL IV PRN ×5 (01:31→20:26)
[2021-06-18 03:33] LABS: #Lymphocytes 0.8 thou/uL (1.20-3.40); #Monocytes 0.5 thou/uL (0.11-0.59); #Neutrophils 9.9 thou/uL (1.40-6.50); %Basophils 0.1 % (0.0-1.0); %Eosinophils 0.3 % (0.0-10.0); %Lymphocytes 7.2 % (21.0-51.0); %Monocytes 4.6 % (0.0-10.0); %Neutrophils 87.9 % (42.0-75.0); Hemoglobin 12.7 g/dL (14.0-18.0); Mean Corpuscular HGB CONC 34.5 g/dL (32.0-36.0); Mean Corpuscular Hemoglobin 30.3 pg (27.0-31.0); Mean Corpuscular Volume 87.7 fL (78.0-98.0); Mean Platelet Volume 7.7 fL (7.4-10.4); Platelet Count 279 thou/uL (130-400); White Blood Cell (WBC) Count 11.2 thou/uL (4.8-10.8)
[2021-06-18 03:52] LABS: Anion Gap 10 mmol/L (10-20); BUN (Urea Nitrogen) 28 mg/dL (8.4-25.7); Calc. Creatinine Clearance 109 mL/min (70-130); Calcium 8.8 mg/dL (7.8-10.44); Carbon Dioxide 33 mmol/L (23-31); Chloride 100 mmol/L (98-107); Glucose 236 mg/dL (83-110); Potassium 3.8 mmol/L (3.5-5.1); Sodium 139 mmol/L (136-145)
[2021-06-18] MEDS: Mometasone 200 MCG/Formoterol 5 MCG 120 PUFF INHALER INH SCH ×2 (07:47→18:56)
[2021-06-18] MEDS: Carvedilol 25 MG TAB PO SCH ×2 (08:47→16:32)
[2021-06-18] MEDS: Enoxaparin Sodium 40 MG/0.4 ML SYRINGE SC SCH (08:47)
[2021-06-18] MEDS: Folic Acid 1 MG TAB PO SCH (08:47)
[2021-06-18] MEDS: Ascorbic Acid 500 mg Chewable Tablet PO SCH (08:47)
[2021-06-18] MEDS: Zinc Sulfate 220 MG CAP PO SCH (08:47)
[2021-06-18] MEDS: Famotidine 20 MG TAB PO SCH ×2 (08:47→20:26)
[2021-06-18] MEDS: Dexamethasone 4 mg/ml Vial SLOW IVP SCH (08:48)
[2021-06-18] MEDS: Vitamin E 400 UNITS CAP PO SCH (08:49)
[2021-06-18] MEDS: NPH, Human Insulin Isophane 300 UNIT/3 ML VIAL SC SCH ×2 (08:51→21:44)
[2021-06-18] MEDS ORDERED: Fentanyl CADD 0 ML ONE (12:45)
[2021-06-18 19:03] LABS: Potassium 4.2 mmol/L (3.5-5.1)
[2021-06-19 04:25] LABS: #Lymphocytes 1.1 thou/uL (1.20-3.40); #Monocytes 0.7 thou/uL (0.11-0.59); #Neutrophils 8.2 thou/uL (1.40-6.50); %Basophils 0.3 % (0.0-1.0); %Eosinophils 0.3 % (0.0-10.0); %Lymphocytes 11.1 % (21.0-51.0); %Monocytes 6.6 % (0.0-10.0); %Neutrophils 81.7 % (42.0-75.0); Hemoglobin 12.7 g/dL (14.0-18.0); Mean Corpuscular HGB CONC 33.2 g/dL (32.0-36.0); Mean Corpuscular Hemoglobin 29.2 pg (27.0-31.0); Mean Corpuscular Volume 87.8 fL (78.0-98.0); Mean Platelet Volume 7.7 fL (7.4-10.4); Platelet Count 322 thou/uL (130-400); RBC Distribution Width 12.2 % (11.5-14.5); Red Blood Cell (RBC) Count 4.35 mill/uL (4.70-6.10)
[2021-06-19 04:44] LABS: Anion Gap 10 mmol/L (10-20); BUN (Urea Nitrogen) 27 mg/dL (8.4-25.7); Calc. Creatinine Clearance 111 mL/min (70-130); Calcium 8.7 mg/dL (7.8-10.44); Carbon Dioxide 32 mmol/L (23-31); Chloride 102 mmol/L (98-107); Glucose 135 mg/dL (83-110); Potassium 3.9 mmol/L (3.5-5.1); Sodium 140 mmol/L (136-145)
[2021-06-19] MEDS: Propofol 1,000 MG/100 ML VIAL IV PRN ×4 (05:18→19:25)
[2021-06-19] MEDS: Mometasone 200 MCG/Formoterol 5 MCG 120 PUFF INHALER INH SCH ×2 (07:44→18:38)
[2021-06-19] MEDS: Enoxaparin Sodium 40 MG/0.4 ML SYRINGE SC SCH (08:54)
[2021-06-19] MEDS: Ascorbic Acid 500 mg Chewable Tablet PO SCH (08:55)
[2021-06-19] MEDS: Dexamethasone 4 mg/ml Vial SLOW IVP SCH (08:55)
[2021-06-19] MEDS: Zinc Sulfate 220 MG CAP PO SCH (08:55)
[2021-06-19] MEDS: Carvedilol 25 MG TAB PO SCH ×2 (08:55→16:33)
[2021-06-19] MEDS: NPH, Human Insulin Isophane 300 UNIT/3 ML VIAL SC SCH ×2 (08:56→21:08)
[2021-06-19] MEDS: Famotidine 20 MG TAB PO SCH ×2 (08:56→21:08)
[2021-06-19] MEDS: Folic Acid 1 MG TAB PO SCH (08:56)
[2021-06-19] MEDS: Vitamin E 400 UNITS CAP PO SCH (08:58)
[2021-06-19] MEDS: HumaLOG 300 UNITS/3 ML VIAL SC PRN ×2 (16:33→21:09)
[2021-06-19] MEDS ORDERED: MEROPENEM 1 GM/50 ML 1 GM in Premix Bag 1 BAG IVPB SCH (20:00)
[2021-06-19] MEDS ORDERED: Meropenem 2 GM in Admixture Fee 1 EACH IVPB SCH (22:00)
[2021-06-19] MEDS: BARICITINIB 2 MG TAB PO SCH (23:30)
[2021-06-20] MEDS: Propofol 1,000 MG/100 ML VIAL IV PRN ×4 (01:57→20:46)
[2021-06-20] MEDS: MEROPENEM 1 GM/50 ML 1 GM in Premix Bag 1 BAG IVPB SCH ×3 (04:47→19:31)
[2021-06-20 05:09] LABS: Band 1 % (5-11); Hemoglobin 12.7 g/dL (14.0-18.0); Hypochromia SLIGHT = 6-15 cells (100X) (0-5/hpf); Lymphocytes 10 % (21-51); MDiff Complete? YES; Mean Corpuscular HGB CONC 32.3 g/dL (32.0-36.0); Mean Corpuscular Hemoglobin 28.5 pg (27.0-31.0); Mean Corpuscular Volume 88.1 fL (78.0-98.0); Mean Platelet Volume 7.9 fL (7.4-10.4); Monocytes 11 % (0-10); Neutrophil 78 % (42-75); Platelet Count 372 thou/uL (130-400); Platelet Morphology Comment Appears Adequate; RBC Distribution Width 12.1 % (11.5-14.5); Red Blood Cell (RBC) Count 4.46 mill/uL (4.70-6.10); White Blood Cell (WBC) Count 9.4 thou/uL (4.8-10.8)
[2021-06-20 05:11] LABS: Anion Gap 11 mmol/L (10-20); BUN (Urea Nitrogen) 27 mg/dL (8.4-25.7); Calc. Creatinine Clearance 108 mL/min (70-130); Calcium 8.6 mg/dL (7.8-10.44); Carbon Dioxide 30 mmol/L (23-31); Chloride 103 mmol/L (98-107); Glucose 129 mg/dL (83-110); Potassium 3.6 mmol/L (3.5-5.1); Sodium 140 mmol/L (136-145)
[2021-06-20] MEDS: Mometasone 200 MCG/Formoterol 5 MCG 120 PUFF INHALER INH SCH ×2 (07:41→18:40)
[2021-06-20] MEDS: Enoxaparin Sodium 40 MG/0.4 ML SYRINGE SC SCH (08:07)
[2021-06-20] MEDS: Carvedilol 25 MG TAB PO SCH ×2 (08:07→15:48)
[2021-06-20] MEDS: Dexamethasone 4 mg/ml Vial SLOW IVP SCH (08:07)
[2021-06-20] MEDS: Vitamin E 400 UNITS CAP PO SCH (08:07)
[2021-06-20] MEDS: Folic Acid 1 MG TAB PO SCH (08:08)
[2021-06-20] MEDS: Zinc Sulfate 220 MG CAP PO SCH (08:08)
[2021-06-20] MEDS: NPH, Human Insulin Isophane 300 UNIT/3 ML VIAL SC SCH ×2 (08:08→21:05)
[2021-06-20] MEDS: Famotidine 20 MG TAB PO SCH ×2 (08:08→20:58)
[2021-06-20] MEDS: Ascorbic Acid 500 mg Chewable Tablet PO SCH (08:08)
[2021-06-20 08:47] LABS: Actual Bicarbonate (HCO3a) 31.3 mEq/L (22-28); Base Excess (BEa) 6.9 mEq/L (-2.0 to +3.0); CO2 Tension 43.5 mmHg (35.0-45.0); Calcium, Ionized (arterial) 1.15 mmol/L (1.12-1.30); Carboxyhemoglobin (COHb) 0.7 gm% (0.0-3.0); Hemoglobin (Hb) 13.9 g/dL (14.0-18.0); Potassium - ABG Lab 3.65 mmol/L (3.70-5.30); pH, Arterial 7.48 (7.35-7.45)
[2021-06-20 08:49] LABS: ALV-art Gradient 257.425 mmHg (0-20); O2 Tension (PaO2), arterial 44.7 mmHg (> 70.0); Puncture Site RRA
[2021-06-20] MEDS ORDERED: Vecuronium 10 MG VIAL ONE (10:50)
[2021-06-20] MEDS ORDERED: Lorazepam 2 MG/ML VIAL ONE (10:50)
[2021-06-20] MEDS ORDERED: Fentanyl CADD 100 ML ONE (10:51)
[2021-06-20] MEDS ORDERED: fentaNYL Citrate/PF 2,000 MCG in Sodium Chloride 0.9% 60 ML IV PRN (10:59)
[2021-06-20] MEDS: HumaLOG 300 UNITS/3 ML VIAL SC PRN ×3 (11:43→16:34)
[2021-06-20] MEDS: Vecuronium 10 MG VIAL IVP PRN ×5 (12:37→22:55)
[2021-06-20] MEDS: Lorazepam 2 MG/ML VIAL SLOW IVP PRN ×3 (17:30→22:55)
[2021-06-21] MEDS: BARICITINIB 2 MG TAB PO SCH (00:43)
[2021-06-21] MEDS: Propofol 1,000 MG/100 ML VIAL IV PRN ×4 (02:00→22:41)
[2021-06-21] MEDS: Lorazepam 2 MG/ML VIAL SLOW IVP PRN ×4 (02:51→11:05)
[2021-06-21] MEDS: Vecuronium 10 MG VIAL IVP PRN ×4 (02:51→11:05)
[2021-06-21] MEDS: MEROPENEM 1 GM/50 ML 1 GM in Premix Bag 1 BAG IVPB SCH ×3 (03:39→20:04)
[2021-06-21 03:55] LABS: #Eosinphils 0.1 thou/uL (0.0-0.7); %Basophils 0.2 % (0.0-1.0); %Eosinophils 0.7 % (0.0-10.0)
[2021-06-21 04:09] LABS: #Monocytes 0.6 thou/uL (0.11-0.59); #Neutrophils 8.5 thou/uL (1.40-6.50); %Lymphocytes 9.4 % (21.0-51.0); %Monocytes 6.2 % (0.0-10.0); %Neutrophils 83.6 % (42.0-75.0); Hemoglobin 12.4 g/dL (14.0-18.0); Mean Corpuscular HGB CONC 32.9 g/dL (32.0-36.0); Mean Corpuscular Hemoglobin 29.2 pg (27.0-31.0); Mean Corpuscular Volume 88.8 fL (78.0-98.0); Mean Platelet Volume 7.7 fL (7.4-10.4); Platelet Count 314 thou/uL (130-400); Red Blood Cell (RBC) Count 4.23 mill/uL (4.70-6.10); White Blood Cell (WBC) Count 10.2 thou/uL (4.8-10.8)
[2021-06-21 04:15] LABS: Anion Gap 9 mmol/L (10-20); BUN (Urea Nitrogen) 23 mg/dL (8.4-25.7); Calc. Creatinine Clearance 123 mL/min (70-130); Calcium 8.6 mg/dL (7.8-10.44); Carbon Dioxide 33 mmol/L (23-31); Chloride 105 mmol/L (98-107); Glucose 102 mg/dL (83-110); Potassium 3.9 mmol/L (3.5-5.1); Sodium 143 mmol/L (136-145)
[2021-06-21] MEDS ORDERED: Fentanyl CADD 100 ML ONE (06:18)
[2021-06-21] MEDS: Mometasone 200 MCG/Formoterol 5 MCG 120 PUFF INHALER INH SCH ×2 (07:28→19:19)
[2021-06-21] MEDS: NPH, Human Insulin Isophane 300 UNIT/3 ML VIAL SC SCH ×2 (07:56→20:05)
[2021-06-21] MEDS: Enoxaparin Sodium 40 MG/0.4 ML SYRINGE SC SCH (07:58)
[2021-06-21] MEDS: Acetaminophen 325 MG TAB PO PRN (07:59)
[2021-06-21] MEDS: Dexamethasone 4 mg/ml Vial SLOW IVP SCH (07:59)
[2021-06-21] MEDS: Zinc Sulfate 220 MG CAP PO SCH (08:02)
[2021-06-21] MEDS: Folic Acid 1 MG TAB PO SCH (08:02)
[2021-06-21] MEDS: Vitamin E 400 UNITS CAP PO SCH (08:02)
[2021-06-21] MEDS: Famotidine 20 MG TAB PO SCH ×2 (08:03→20:05)
[2021-06-21] MEDS: Carvedilol 25 MG TAB PO SCH ×2 (08:03→16:12)
[2021-06-21] MEDS: Ascorbic Acid 500 mg Chewable Tablet PO SCH (08:03)
[2021-06-21 08:32] LABS: Actual Bicarbonate (HCO3a) 32.8 mEq/L (22-28); Base Excess (BEa) 5.7 mEq/L (-2.0 to +3.0); CO2 Tension 58.8 mmHg (35.0-45.0); Calcium, Ionized (arterial) 1.21 mmol/L (1.12-1.30); Carboxyhemoglobin (COHb) 1.1 gm% (0.0-3.0); Hemoglobin (Hb) 13.3 g/dL (14.0-18.0); O2 Tension (PaO2), arterial 71.2 mmHg (> 70.0); Potassium - ABG Lab 3.83 mmol/L (3.70-5.30); pH, Arterial 7.36 (7.35-7.45)
[2021-06-21 08:45] LABS: Puncture Site RRA
[2021-06-21 09:07] LABS: ALT (SGPT) 89 U/L (8-55); AST (SGOT) 49 U/L (5-34); Albumin 2.2 g/dL (3.4-4.8); Alkaline Phosphatase 78 U/L (40-110); Bilirubin, Direct 0.2 mg/dL (0.1-0.3); Bilirubin, Total 0.4 mg/dL (0.2-1.2); Protein, Total 5.8 g/dL (5.8-8.1)
[2021-06-22] MEDS: BARICITINIB 2 MG TAB PO SCH (00:36)
[2021-06-22] MEDS ORDERED: Fentanyl CADD 100 ML ONE ×2 (01:58→23:13)
[2021-06-22] MEDS: Fentanyl CADD 100 ML IV SCH ×2 (02:16→23:18)
[2021-06-22] MEDS: MEROPENEM 1 GM/50 ML 1 GM in Premix Bag 1 BAG IVPB SCH ×3 (04:26→20:32)
[2021-06-22 05:00] LABS: Hemoglobin 12.4 g/dL (14.0-18.0); MDiff Complete? YES; Mean Corpuscular HGB CONC 32.3 g/dL (32.0-36.0); Mean Corpuscular Hemoglobin 28.7 pg (27.0-31.0); Mean Corpuscular Volume 88.8 fL (78.0-98.0); Mean Platelet Volume 7.4 fL (7.4-10.4); Platelet Count 313 thou/uL (130-400); RBC Distribution Width 12.1 % (11.5-14.5); Red Blood Cell (RBC) Count 4.34 mill/uL (4.70-6.10); White Blood Cell (WBC) Count 11.4 thou/uL (4.8-10.8)
[2021-06-22 05:01] LABS: Band 4 % (5-11); Hypochromia SLIGHT = 6-15 cells (100X) (0-5/hpf); Lymphocytes 9 % (21-51); Monocytes 11 % (0-10); Neutrophil 76 % (42-75); Platelet Morphology Comment Appears Adequate
[2021-06-22 05:10] LABS: ALT (SGPT) 83 U/L (8-55); AST (SGOT) 42 U/L (5-34); Albumin 2.3 g/dL (3.4-4.8); Alkaline Phosphatase 96 U/L (40-110); Anion Gap 8 mmol/L (10-20); BUN (Urea Nitrogen) 25 mg/dL (8.4-25.7); Bilirubin, Total 0.4 mg/dL (0.2-1.2); Calc. Creatinine Clearance 126 mL/min (70-130); Calcium 8.5 mg/dL (7.8-10.44); Carbon Dioxide 35 mmol/L (23-31); Chloride 105 mmol/L (98-107); Globulin 3.5 g/dL (2.4-3.5); Glucose 96 mg/dL (83-110); Magnesium 2.3 mg/dL (1.6-2.6); Phosphorus 2.5 mg/dL (2.3-4.7); Potassium 3.7 mmol/L (3.5-5.1); Protein, Total 5.8 g/dL (5.8-8.1); Sodium 144 mmol/L (136-145)
[2021-06-22] MEDS: Propofol 1,000 MG/100 ML VIAL IV PRN ×3 (05:56→20:38)
[2021-06-22] MEDS: Dexamethasone 4 mg/ml Vial SLOW IVP SCH (07:43)
[2021-06-22] MEDS: Lorazepam 2 MG/ML VIAL SLOW IVP PRN ×3 (07:43→16:09)
[2021-06-22] MEDS: Ascorbic Acid 500 mg Chewable Tablet PO SCH (07:44)
[2021-06-22] MEDS: Enoxaparin Sodium 40 MG/0.4 ML SYRINGE SC SCH (07:44)
[2021-06-22] MEDS: Folic Acid 1 MG TAB PO SCH (07:44)
[2021-06-22] MEDS: Acetaminophen 325 MG TAB PO PRN (07:44)
[2021-06-22] MEDS: Famotidine 20 MG TAB PO SCH ×2 (07:45→20:32)
[2021-06-22] MEDS: Zinc Sulfate 220 MG CAP PO SCH (07:45)
[2021-06-22] MEDS: Vitamin E 400 UNITS CAP PO SCH (07:46)
[2021-06-22] MEDS: NPH, Human Insulin Isophane 300 UNIT/3 ML VIAL SC SCH ×2 (07:46→20:43)
[2021-06-22] MEDS: Mometasone 200 MCG/Formoterol 5 MCG 120 PUFF INHALER INH SCH ×2 (07:52→18:52)
[2021-06-22 08:35] LABS: Actual Bicarbonate (HCO3a) 31.2 mEq/L (22-28); Base Excess (BEa) 5.4 mEq/L (-2.0 to +3.0); Calcium, Ionized (arterial) 1.17 mmol/L (1.12-1.30); Carboxyhemoglobin (COHb) 1.1 gm% (0.0-3.0); O2 Tension (PaO2), arterial 47.7 mmHg (> 70.0); Potassium - ABG Lab 3.48 mmol/L (3.70-5.30); pH, Arterial 7.41 (7.35-7.45)
[2021-06-22 08:36] LABS: Puncture Site RRA
[2021-06-22] MEDS: Carvedilol 25 MG TAB PO SCH ×2 (11:18→16:09)
[2021-06-22] MEDS: Vecuronium 10 MG VIAL IVP PRN (14:00)
[2021-06-22] MEDS: HumaLOG 300 UNITS/3 ML VIAL SC PRN (16:08)
[2021-06-23] MEDS: BARICITINIB 2 MG TAB PO SCH ×2 (00:06→20:29)
[2021-06-23] MEDS: Propofol 1,000 MG/100 ML VIAL IV PRN ×5 (02:33→22:55)
[2021-06-23] MEDS: MEROPENEM 1 GM/50 ML 1 GM in Premix Bag 1 BAG IVPB SCH ×3 (03:54→20:30)
[2021-06-23 05:02] LABS: Band 6 % (5-11); Eosinophils 2 % (0-10); Hemoglobin 12.5 g/dL (14.0-18.0); Lymphocytes 7 % (21-51); MDiff Complete? YES; Mean Corpuscular HGB CONC 33.4 g/dL (32.0-36.0); Mean Corpuscular Hemoglobin 29.7 pg (27.0-31.0); Mean Corpuscular Volume 88.7 fL (78.0-98.0); Mean Platelet Volume 7.8 fL (7.4-10.4); Monocytes 8 % (0-10); Neutrophil 75 % (42-75); Platelet Count 321 thou/uL (130-400); Platelet Morphology Comment Appears Adequate; RBC Distribution Width 12.1 % (11.5-14.5); RBC Morphology Normal; Reactive Lymphocytes 2 % (0-10); Red Blood Cell (RBC) Count 4.23 mill/uL (4.70-6.10); White Blood Cell (WBC) Count 12.3 thou/uL (4.8-10.8)
[2021-06-23 05:11] LABS: ALT (SGPT) 73 U/L (8-55); AST (SGOT) 33 U/L (5-34); Albumin 2.4 g/dL (3.4-4.8); Alkaline Phosphatase 105 U/L (40-110); Anion Gap 9 mmol/L (10-20); BUN (Urea Nitrogen) 22 mg/dL (8.4-25.7); Bilirubin, Total 0.5 mg/dL (0.2-1.2); Calc. Creatinine Clearance 128 mL/min (70-130); Calcium 8.5 mg/dL (7.8-10.44); Carbon Dioxide 35 mmol/L (23-31); Chloride 101 mmol/L (98-107); Globulin 3.6 g/dL (2.4-3.5); Glucose 99 mg/dL (83-110); Magnesium 2.3 mg/dL (1.6-2.6); Phosphorus 2.3 mg/dL (2.3-4.7); Potassium 3.5 mmol/L (3.5-5.1); Sodium 141 mmol/L (136-145)
[2021-06-23] MEDS ORDERED: Potassium Chloride 20 MEQ TAB PO SCH (06:45)
[2021-06-23 07:46] LABS: Actual Bicarbonate (HCO3a) 31.1 mEq/L (22-28); Base Excess (BEa) 5.8 mEq/L (-2.0 to +3.0); Calcium, Ionized (arterial) 1.14 mmol/L (1.12-1.30); Carboxyhemoglobin (COHb) 0.3 gm% (0.0-3.0); Hemoglobin (Hb) 12.3 g/dL (14.0-18.0); Potassium - ABG Lab 3.51 mmol/L (3.70-5.30); pH, Arterial 7.43 (7.35-7.45)
[2021-06-23 07:48] LABS: O2 Tension (PaO2), arterial 57.5 mmHg (> 70.0)
[2021-06-23 07:49] LABS: Puncture Site RRA
[2021-06-23] MEDS: Mometasone 200 MCG/Formoterol 5 MCG 120 PUFF INHALER INH SCH ×2 (08:31→20:10)
[2021-06-23] MEDS: Carvedilol 25 MG TAB PO SCH ×2 (09:02→16:11)
[2021-06-23] MEDS: Folic Acid 1 MG TAB PO SCH (09:02)
[2021-06-23] MEDS: Enoxaparin Sodium 40 MG/0.4 ML SYRINGE SC SCH (09:02)
[2021-06-23] MEDS: Zinc Sulfate 220 MG CAP PO SCH (09:02)
[2021-06-23] MEDS: Famotidine 20 MG TAB PO SCH ×2 (09:03→20:29)
[2021-06-23] MEDS: Ascorbic Acid 500 mg Chewable Tablet PO SCH (09:04)
[2021-06-23] MEDS: NPH, Human Insulin Isophane 300 UNIT/3 ML VIAL SC SCH ×2 (09:05→20:31)
[2021-06-23] MEDS: Vitamin E 400 UNITS CAP PO SCH (09:16)
[2021-06-23] MEDS ORDERED: Vecuronium 10 MG VIAL ONE (09:34)
[2021-06-23] MEDS: Vecuronium 10 MG VIAL IVP PRN (10:27)
[2021-06-23 12:25] LABS: Potassium 3.5 mmol/L (3.5-5.1)
[2021-06-23] MEDS ORDERED: Fentanyl CADD 100 ML ONE (19:57)
[2021-06-23] MEDS: Fentanyl CADD 100 ML IV SCH (20:31)
[2021-06-23] MEDS: Lorazepam 2 MG/ML VIAL SLOW IVP PRN (22:06)
[2021-06-23] MEDS: Acetaminophen 325 MG TAB PO PRN (23:09)
[2021-06-24] MEDS: Lorazepam 2 MG/ML VIAL SLOW IVP PRN (00:17)
[2021-06-24] MEDS: MEROPENEM 1 GM/50 ML 1 GM in Premix Bag 1 BAG IVPB SCH ×3 (03:01→19:55)
[2021-06-24] MEDS: Propofol 1,000 MG/100 ML VIAL IV PRN ×4 (04:42→19:37)
[2021-06-24 05:08] LABS: Hemoglobin 12.1 g/dL (14.0-18.0); Mean Corpuscular HGB CONC 32.3 g/dL (32.0-36.0); Mean Corpuscular Volume 89.8 fL (78.0-98.0); Mean Platelet Volume 7.2 fL (7.4-10.4); Platelet Count 306 thou/uL (130-400); RBC Distribution Width 12.2 % (11.5-14.5); Red Blood Cell (RBC) Count 4.17 mill/uL (4.70-6.10); White Blood Cell (WBC) Count 10.9 thou/uL (4.8-10.8)
[2021-06-24 05:10] LABS: ALT (SGPT) 70 U/L (8-55); AST (SGOT) 42 U/L (5-34); Albumin 2.3 g/dL (3.4-4.8); Alkaline Phosphatase 121 U/L (40-110); Anion Gap 8 mmol/L (10-20); BUN (Urea Nitrogen) 17 mg/dL (8.4-25.7); Bilirubin, Total 0.6 mg/dL (0.2-1.2); Calc. Creatinine Clearance 134 mL/min (70-130); Calcium 8.4 mg/dL (7.8-10.44); Carbon Dioxide 35 mmol/L (23-31); Chloride 102 mmol/L (98-107); Globulin 3.5 g/dL (2.4-3.5); Glucose 117 mg/dL (83-110); Magnesium 2.2 mg/dL (1.6-2.6); Phosphorus 2.7 mg/dL (2.3-4.7); Potassium 3.8 mmol/L (3.5-5.1); Protein, Total 5.8 g/dL (5.8-8.1); Sodium 141 mmol/L (136-145)
[2021-06-24 07:54] LABS: Band 16 % (5-11); Eosinophils 2 % (0-10); Lymphocytes 9 % (21-51); MDiff Complete? YES; Monocytes 1 % (0-10); Neutrophil 72 % (42-75); Platelet Morphology Comment Appears Adequate; RBC Morphology Normal
[2021-06-24] MEDS: Mometasone 200 MCG/Formoterol 5 MCG 120 PUFF INHALER INH SCH ×2 (08:14→19:14)
[2021-06-24 08:15] LABS: Actual Bicarbonate (HCO3a) 33.2 mEq/L (22-28); Base Excess (BEa) 7.1 mEq/L (-2.0 to +3.0); CO2 Tension 53.9 mmHg (35.0-45.0); Calcium, Ionized (arterial) 1.12 mmol/L (1.12-1.30); Carboxyhemoglobin (COHb) 0.5 gm% (0.0-3.0); Hemoglobin (Hb) 12.6 g/dL (14.0-18.0); O2 Tension (PaO2), arterial 63.6 mmHg (> 70.0); Potassium - ABG Lab 3.72 mmol/L (3.70-5.30); pH, Arterial 7.41 (7.35-7.45)
[2021-06-24 08:19] LABS: ALV-art Gradient 368.125 mmHg (0-20); Puncture Site RRA
[2021-06-24] MEDS ORDERED: Furosemide 40 MG/4 ML VIAL SLOW IVP SCH (09:30)
[2021-06-24] MEDS: Folic Acid 1 MG TAB PO SCH (09:49)
[2021-06-24] MEDS: Enoxaparin Sodium 40 MG/0.4 ML SYRINGE SC SCH (09:49)
[2021-06-24] MEDS: Polyethylene Glycol 3350 17 GM Packet PER TUBE SCH ×2 (09:50→21:15)
[2021-06-24] MEDS: Famotidine 20 MG TAB PO SCH ×2 (09:50→21:15)
[2021-06-24] MEDS: Ascorbic Acid 500 mg Chewable Tablet PO SCH (09:50)
[2021-06-24] MEDS: Carvedilol 25 MG TAB PO SCH ×2 (09:50→17:13)
[2021-06-24] MEDS: Vitamin E 400 UNITS CAP PO SCH (09:51)
[2021-06-24] MEDS: NPH, Human Insulin Isophane 300 UNIT/3 ML VIAL SC SCH ×2 (10:25→21:28)
[2021-06-24] MEDS: HumaLOG 300 UNITS/3 ML VIAL SC PRN ×2 (14:08→17:13)
[2021-06-24] MEDS: Zinc Sulfate 220 MG CAP PO SCH (14:26)
[2021-06-24] MEDS ORDERED: Fentanyl CADD 100 ML ONE (16:59)
[2021-06-24] MEDS: Fentanyl CADD 100 ML IV SCH (17:06)
[2021-06-24] MEDS: BARICITINIB 2 MG TAB PO SCH (21:15)
[2021-06-25] MEDS: Propofol 1,000 MG/100 ML VIAL IV PRN ×5 (00:13→22:06)
[2021-06-25] MEDS: MEROPENEM 1 GM/50 ML 1 GM in Premix Bag 1 BAG IVPB SCH ×3 (03:51→19:31)
[2021-06-25] MEDS: HumaLOG 300 UNITS/3 ML VIAL SC PRN ×2 (06:38→16:02)
[2021-06-25 06:58] LABS: Hemoglobin 12.4 g/dL (14.0-18.0); Mean Corpuscular Hemoglobin 29.6 pg (27.0-31.0); Mean Corpuscular Volume 89.7 fL (78.0-98.0); Mean Platelet Volume 7.6 fL (7.4-10.4); Platelet Count 268 thou/uL (130-400); RBC Distribution Width 12.2 % (11.5-14.5); White Blood Cell (WBC) Count 9.5 thou/uL (4.8-10.8)
[2021-06-25 07:06] LABS: ALT (SGPT) 57 U/L (8-55); AST (SGOT) 28 U/L (5-34); Albumin 2.2 g/dL (3.4-4.8); Alkaline Phosphatase 119 U/L (40-110); Anion Gap 9 mmol/L (10-20); BUN (Urea Nitrogen) 20 mg/dL (8.4-25.7); Bilirubin, Total 0.5 mg/dL (0.2-1.2); Calc. Creatinine Clearance 125 mL/min (70-130); Calcium 8.6 mg/dL (7.8-10.44); Carbon Dioxide 37 mmol/L (23-31); Chloride 98 mmol/L (98-107); Globulin 3.8 g/dL (2.4-3.5); Glucose 166 mg/dL (83-110); Magnesium 2.3 mg/dL (1.6-2.6); Phosphorus 2.7 mg/dL (2.3-4.7); Potassium 3.7 mmol/L (3.5-5.1); Sodium 140 mmol/L (136-145)
[2021-06-25 07:35] LABS: Band 2 % (5-11); Eosinophils 2 % (0-10); Lymphocytes 10 % (21-51); MDiff Complete? YES; Monocytes 1 % (0-10); Neutrophil 83 % (42-75); Platelet Morphology Comment Appears Adequate; Reactive Lymphocytes 2 % (0-10); Vacuoles SLIGHT
[2021-06-25] MEDS: Mometasone 200 MCG/Formoterol 5 MCG 120 PUFF INHALER INH SCH ×2 (08:06→18:52)
[2021-06-25 08:17] LABS: Actual Bicarbonate (HCO3a) 38.8 mEq/L (22-28); Base Excess (BEa) 11.9 mEq/L (-2.0 to +3.0); Calcium, Ionized (arterial) 1.17 mmol/L (1.12-1.30); Carboxyhemoglobin (COHb) 0.7 gm% (0.0-3.0); Hemoglobin (Hb) 12.8 g/dL (14.0-18.0); Potassium - ABG Lab 3.62 mmol/L (3.70-5.30); pH, Arterial 7.42 (7.35-7.45)
[2021-06-25 08:19] LABS: CO2 Tension 61.2 mmHg (35.0-45.0); O2 Tension (PaO2), arterial 58.7 mmHg (> 70.0); Puncture Site RRA
[2021-06-25] MEDS ORDERED: Fentanyl CADD 0 ML ONE ×2 (08:36→08:37)
[2021-06-25] MEDS: Ascorbic Acid 500 mg Chewable Tablet PO SCH (08:56)
[2021-06-25] MEDS: Vitamin E 400 UNITS CAP PO SCH (08:56)
[2021-06-25] MEDS: Polyethylene Glycol 3350 17 GM Packet PER TUBE SCH ×2 (08:56→19:32)
[2021-06-25] MEDS: Enoxaparin Sodium 40 MG/0.4 ML SYRINGE SC SCH (08:56)
[2021-06-25] MEDS: Carvedilol 25 MG TAB PO SCH ×2 (08:57→17:12)
[2021-06-25] MEDS: Famotidine 20 MG TAB PO SCH ×2 (08:57→19:32)
[2021-06-25] MEDS: Folic Acid 1 MG TAB PO SCH (08:57)
[2021-06-25] MEDS: NPH, Human Insulin Isophane 300 UNIT/3 ML VIAL SC SCH ×2 (09:28→20:27)
[2021-06-25] MEDS ORDERED: Fentanyl CADD 100 ML ONE (12:43)
[2021-06-25] MEDS: Fentanyl CADD 100 ML IV SCH (13:05)
[2021-06-25 14:03] LABS: Actual Bicarbonate (HCO3a) 40.9 mEq/L (22-28); Base Excess (BEa) 12.6 mEq/L (-2.0 to +3.0); Calcium, Ionized (arterial) 1.17 mmol/L (1.12-1.30); Carboxyhemoglobin (COHb) 0.3 gm% (0.0-3.0); O2 Tension (PaO2), arterial 61.9 mmHg (> 70.0); Potassium - ABG Lab 3.82 mmol/L (3.70-5.30); pH, Arterial 7.38 (7.35-7.45)
[2021-06-25 14:04] LABS: CO2 Tension 71.5 mmHg (35.0-45.0)
[2021-06-25 14:05] LABS: Puncture Site LRA
[2021-06-25 14:06] LABS: ALV-art Gradient 419.125 mmHg (0-20)
[2021-06-25] MEDS: BARICITINIB 2 MG TAB PO SCH (19:32)
[2021-06-25] MEDS: Lorazepam 2 MG/ML VIAL SLOW IVP PRN (22:12)
[2021-06-26] MEDS: MEROPENEM 1 GM/50 ML 1 GM in Premix Bag 1 BAG IVPB SCH ×3 (03:03→20:36)
[2021-06-26] MEDS: Propofol 1,000 MG/100 ML VIAL IV PRN ×5 (03:08→21:22)
[2021-06-26 04:45] LABS: Hemoglobin 11.6 g/dL (14.0-18.0); Mean Corpuscular HGB CONC 32.6 g/dL (32.0-36.0); Mean Corpuscular Hemoglobin 29.4 pg (27.0-31.0); Mean Corpuscular Volume 90.3 fL (78.0-98.0); Mean Platelet Volume 7.2 fL (7.4-10.4); Platelet Count 238 thou/uL (130-400); RBC Distribution Width 12.3 % (11.5-14.5); Red Blood Cell (RBC) Count 3.95 mill/uL (4.70-6.10); White Blood Cell (WBC) Count 7.1 thou/uL (4.8-10.8)
[2021-06-26 05:04] LABS: ALT (SGPT) 48 U/L (8-55); AST (SGOT) 29 U/L (5-34); Alkaline Phosphatase 118 U/L (40-110); BUN (Urea Nitrogen) 20 mg/dL (8.4-25.7); Bilirubin, Total 0.4 mg/dL (0.2-1.2); Calc. Creatinine Clearance 136 mL/min (70-130); Calcium 8.4 mg/dL (7.8-10.44); Globulin 3.6 g/dL (2.4-3.5); Glucose 130 mg/dL (83-110); Magnesium 2.4 mg/dL (1.6-2.6); Phosphorus 2.5 mg/dL (2.3-4.7); Protein, Total 5.6 g/dL (5.8-8.1)
[2021-06-26 05:13] LABS: Anion Gap 14 mmol/L (10-20); Carbon Dioxide 35 mmol/L (23-31); Chloride 97 mmol/L (98-107); Potassium 3.8 mmol/L (3.5-5.1); Sodium 142 mmol/L (136-145)
[2021-06-26 06:11] LABS: Band 23 % (5-11); Eosinophils 1 % (0-10); Lymphocytes 14 % (21-51); MDiff Complete? YES; Monocytes 3 % (0-10); Neutrophil 59 % (42-75)
[2021-06-26] MEDS: Mometasone 200 MCG/Formoterol 5 MCG 120 PUFF INHALER INH SCH ×2 (08:27→18:40)
[2021-06-26 08:41] LABS: Actual Bicarbonate (HCO3a) 41.9 mEq/L (22-28); Base Excess (BEa) 15.2 mEq/L (-2.0 to +3.0); Calcium, Ionized (arterial) 1.15 mmol/L (1.12-1.30); Carboxyhemoglobin (COHb) 0.6 gm% (0.0-3.0); Hemoglobin (Hb) 13.2 g/dL (14.0-18.0); Potassium - ABG Lab 3.86 mmol/L (3.70-5.30); pH, Arterial 7.46 (7.35-7.45)
[2021-06-26] MEDS: Famotidine 20 MG TAB PO SCH ×2 (08:56→20:36)
[2021-06-26] MEDS: Polyethylene Glycol 3350 17 GM Packet PER TUBE SCH ×2 (08:56→20:36)
[2021-06-26] MEDS: Ascorbic Acid 500 mg Chewable Tablet PO SCH (08:57)
[2021-06-26] MEDS: Enoxaparin Sodium 40 MG/0.4 ML SYRINGE SC SCH (08:57)
[2021-06-26] MEDS: Carvedilol 25 MG TAB PO SCH ×2 (08:57→17:08)
[2021-06-26] MEDS: Folic Acid 1 MG TAB PO SCH (08:57)
[2021-06-26] MEDS: Fentanyl CADD 100 ML IV SCH (09:00)
[2021-06-26 09:07] LABS: CO2 Tension 60.1 mmHg (35.0-45.0); O2 Tension (PaO2), arterial 37.7 mmHg (> 70.0); Puncture Site RRA
[2021-06-26 09:08] LABS: ALV-art Gradient 421.925 mmHg (0-20)
[2021-06-26] MEDS: Lorazepam 2 MG/ML VIAL SLOW IVP PRN ×3 (09:59→21:22)
[2021-06-26] MEDS: NPH, Human Insulin Isophane 300 UNIT/3 ML VIAL SC SCH ×2 (10:34→21:10)
[2021-06-26] MEDS: Vitamin E 400 UNITS CAP PO SCH (11:53)
[2021-06-26] MEDS: Vecuronium 10 MG VIAL IVP PRN ×2 (12:29→21:22)
[2021-06-27] MEDS ORDERED: Fentanyl CADD 100 ML ONE ×2 (00:38→14:09)
[2021-06-27] MEDS: Fentanyl CADD 100 ML IV SCH ×2 (00:40→14:10)
[2021-06-27 04:27] LABS: #Eosinphils 0.1 thou/uL (0.0-0.7); #Lymphocytes 0.9 thou/uL (1.20-3.40); #Monocytes 0.8 thou/uL (0.11-0.59); #Neutrophils 9.3 thou/uL (1.40-6.50); %Basophils 0.1 % (0.0-1.0); %Eosinophils 0.7 % (0.0-10.0); %Lymphocytes 7.8 % (21.0-51.0); %Monocytes 7.1 % (0.0-10.0); %Neutrophils 84.4 % (42.0-75.0); Hemoglobin 12.1 g/dL (14.0-18.0); Mean Corpuscular HGB CONC 32.2 g/dL (32.0-36.0); Mean Corpuscular Hemoglobin 29.3 pg (27.0-31.0); Mean Corpuscular Volume 91.1 fL (78.0-98.0); Mean Platelet Volume 7.4 fL (7.4-10.4); Platelet Count 245 thou/uL (130-400); RBC Distribution Width 12.3 % (11.5-14.5); Red Blood Cell (RBC) Count 4.14 mill/uL (4.70-6.10); White Blood Cell (WBC) Count 11.1 thou/uL (4.8-10.8)
[2021-06-27] MEDS: Propofol 1,000 MG/100 ML VIAL IV PRN ×5 (04:44→22:51)
[2021-06-27 04:48] LABS: ALT (SGPT) 49 U/L (8-55); AST (SGOT) 36 U/L (5-34); Albumin 2.1 g/dL (3.4-4.8); Alkaline Phosphatase 138 U/L (40-110); BUN (Urea Nitrogen) 21 mg/dL (8.4-25.7); Bilirubin, Total 0.5 mg/dL (0.2-1.2); Calc. Creatinine Clearance 138 mL/min (70-130); Calcium 8.8 mg/dL (7.8-10.44); Globulin 3.9 g/dL (2.4-3.5); Glucose 149 mg/dL (83-110); Magnesium 2.2 mg/dL (1.6-2.6); Phosphorus 2.5 mg/dL (2.3-4.7)
[2021-06-27 04:57] LABS: Anion Gap 13 mmol/L (10-20); Carbon Dioxide 37 mmol/L (23-31); Chloride 96 mmol/L (98-107); Sodium 142 mmol/L (136-145)
[2021-06-27] MEDS: Mometasone 200 MCG/Formoterol 5 MCG 120 PUFF INHALER INH SCH ×2 (07:38→19:11)
[2021-06-27 07:59] LABS: Actual Bicarbonate (HCO3a) 42.6 mEq/L (22-28); Base Excess (BEa) 13.9 mEq/L (-2.0 to +3.0); Calcium, Ionized (arterial) 1.18 mmol/L (1.12-1.30); Hemoglobin (Hb) 12.7 g/dL (14.0-18.0); Potassium - ABG Lab 4.07 mmol/L (3.70-5.30); pH, Arterial 7.37 (7.35-7.45)
[2021-06-27 08:06] LABS: CO2 Tension 76.2 mmHg (35.0-45.0); O2 Tension (PaO2), arterial 58.4 mmHg (> 70.0)
[2021-06-27 08:07] LABS: Puncture Site LRA
[2021-06-27] MEDS: Carvedilol 25 MG TAB PO SCH ×2 (08:28→16:19)
[2021-06-27] MEDS: Folic Acid 1 MG TAB PO SCH (08:28)
[2021-06-27] MEDS: Ascorbic Acid 500 mg Chewable Tablet PO SCH (08:28)
[2021-06-27] MEDS: Polyethylene Glycol 3350 17 GM Packet PER TUBE SCH ×2 (08:29→21:36)
[2021-06-27] MEDS: Enoxaparin Sodium 40 MG/0.4 ML SYRINGE SC SCH (08:29)
[2021-06-27] MEDS: Famotidine 20 MG TAB PO SCH ×2 (08:29→21:36)
[2021-06-27] MEDS: NPH, Human Insulin Isophane 300 UNIT/3 ML VIAL SC SCH ×2 (08:30→23:08)
[2021-06-27] MEDS: Vitamin E 400 UNITS CAP PO SCH (08:52)
[2021-06-27] MEDS: HumaLOG 300 UNITS/3 ML VIAL SC PRN (09:49)
[2021-06-27] MEDS ORDERED: Furosemide 40 MG/4 ML VIAL SLOW IVP SCH ×2 (10:45→19:00)
[2021-06-27] MEDS ORDERED: Potassium Chloride 20 MEQ in Premix Bag 1 BAG IVPB SCH (10:45)
[2021-06-27] MEDS: Vecuronium 10 MG VIAL IVP PRN (14:41)
[2021-06-27] MEDS: Lorazepam 2 MG/ML VIAL SLOW IVP PRN (14:41)
[2021-06-28 04:22] LABS: Anion Gap 14 mmol/L (10-20); Chloride 92 mmol/L (98-107); Potassium 4.1 mmol/L (3.5-5.1); Sodium 144 mmol/L (136-145)
[2021-06-28 04:27] LABS: ALT (SGPT) 70 U/L (8-55); AST (SGOT) 49 U/L (5-34); Albumin 2.2 g/dL (3.4-4.8); Alkaline Phosphatase 151 U/L (40-110); BUN (Urea Nitrogen) 21 mg/dL (8.4-25.7); Bilirubin, Total 0.6 mg/dL (0.2-1.2); Calc. Creatinine Clearance 128 mL/min (70-130); Calcium 8.6 mg/dL (7.8-10.44); Carbon Dioxide 42 mmol/L (23-31); Glucose 155 mg/dL (83-110); Magnesium 2.3 mg/dL (1.6-2.6); Phosphorus 3.1 mg/dL (2.3-4.7); Protein, Total 6.2 g/dL (5.8-8.1)
[2021-06-28] MEDS ORDERED: Fentanyl CADD 100 ML ONE (04:32)
[2021-06-28 05:07] LABS: Band 24 % (5-11); Eosinophils 2 % (0-10); Lymphocytes 10 % (21-51); MDiff Complete? YES; Mean Corpuscular HGB CONC 31.6 g/dL (32.0-36.0); Mean Corpuscular Volume 91.8 fL (78.0-98.0); Mean Platelet Volume 7.5 fL (7.4-10.4); Monocytes 4 % (0-10); Neutrophil 60 % (42-75); Platelet Count 182 thou/uL (130-400); RBC Distribution Width 12.4 % (11.5-14.5); Red Blood Cell (RBC) Count 4.14 mill/uL (4.70-6.10); White Blood Cell (WBC) Count 10.9 thou/uL (4.8-10.8)
[2021-06-28] MEDS: Propofol 1,000 MG/100 ML VIAL IV PRN (06:20)
[2021-06-28 07:33] LABS: Actual Bicarbonate (HCO3a) 46.3 mEq/L (22-28); Base Excess (BEa) 16.8 mEq/L (-2.0 to +3.0); Calcium, Ionized (arterial) 1.15 mmol/L (1.12-1.30); Potassium - ABG Lab 4.12 mmol/L (3.70-5.30); pH, Arterial 7.36 (7.35-7.45)
[2021-06-28] MEDS: Mometasone 200 MCG/Formoterol 5 MCG 120 PUFF INHALER INH SCH ×2 (07:33→18:43)
[2021-06-28 07:36] LABS: CO2 Tension 83.5 mmHg (35.0-45.0); O2 Tension (PaO2), arterial 52.1 mmHg (> 70.0)
[2021-06-28 07:37] LABS: ALV-art Gradient 556.525 mmHg (0-20); Puncture Site LRA
[2021-06-28] MEDS: Folic Acid 1 MG TAB PO SCH (08:51)
[2021-06-28] MEDS: Carvedilol 25 MG TAB PO SCH ×2 (08:51→16:28)
[2021-06-28] MEDS: Multivit, Therapeutic 1 TAB PO SCH (08:51)
[2021-06-28] MEDS: Ascorbic Acid 500 mg Chewable Tablet PO SCH (08:51)
[2021-06-28] MEDS: Polyethylene Glycol 3350 17 GM Packet PER TUBE SCH ×2 (08:52→21:04)
[2021-06-28] MEDS: Enoxaparin Sodium 40 MG/0.4 ML SYRINGE SC SCH (08:52)
[2021-06-28] MEDS: Famotidine 20 MG TAB PO SCH ×2 (08:52→21:04)
[2021-06-28] MEDS: NPH, Human Insulin Isophane 300 UNIT/3 ML VIAL SC SCH ×2 (08:55→21:06)
[2021-06-28] MEDS: Cyanocobalamin (Vitamin B-12) 1,000 MCG TAB PO SCH (09:06)
[2021-06-28] MEDS: Acetaminophen 325 MG TAB PO PRN ×3 (09:14→21:04)
[2021-06-28 10:18] VITALS: BMI 32.1
[2021-06-28] MEDS ORDERED: Piperacillin/Tazobactam 3.375 GM in Sodium Chloride 0.9% 100 ML IVPB SCH ×2 (12:00→12:30)
[2021-06-28] MEDS: Artificial Tear Sol 15 ML BOT EA EYE PRN ×2 (12:37→17:04)
[2021-06-28] MEDS ORDERED: Vancomycin 1.5 GRAM/300 ML BAG 1.5 GM in Premix Bag 1 BAG IVPB SCH (13:00)
[2021-06-28] MEDS: Vancomycin 1.5 GRAM/300 ML BAG 1.5 GM in Premix Bag 1 BAG IVPB SCH (13:23)
[2021-06-28] MEDS ORDERED: Propofol BOLUS 1,000 MG/100 ML VIAL IV PRN (13:30)
[2021-06-28] MEDS ORDERED: Fentanyl BOLUS 250 ML IVPB PRN (14:00)
[2021-06-28] MEDS: HumaLOG 300 UNITS/3 ML VIAL SC PRN ×2 (17:03→21:06)
[2021-06-28] MEDS: Metoclopramide HCl 10 MG/2 ML VIAL IVP SCH (21:04)
[2021-06-29] MEDS: Vancomycin 1.5 GRAM/300 ML BAG 1.5 GM in Premix Bag 1 BAG IVPB SCH ×2 (00:02→14:10)
[2021-06-29] MEDS: Piperacillin/Tazobactam 3.375 GM in Sodium Chloride 0.9% 100 ML IVPB SCH ×3 (00:02→16:36)
[2021-06-29] MEDS: Propofol 1,000 MG/100 ML VIAL IV PRN ×2 (00:29→19:15)
[2021-06-29 04:34] LABS: Hemoglobin 12.3 g/dL (14.0-18.0); Mean Corpuscular HGB CONC 32.8 g/dL (32.0-36.0); Mean Corpuscular Hemoglobin 29.9 pg (27.0-31.0); Mean Corpuscular Volume 91.1 fL (78.0-98.0); Mean Platelet Volume 7.9 fL (7.4-10.4); Platelet Count 212 thou/uL (130-400); RBC Distribution Width 12.4 % (11.5-14.5); Red Blood Cell (RBC) Count 4.11 mill/uL (4.70-6.10); White Blood Cell (WBC) Count 13.3 thou/uL (4.8-10.8)
[2021-06-29] MEDS: Metoclopramide HCl 10 MG/2 ML VIAL IVP SCH ×3 (05:04→20:57)
[2021-06-29 05:14] LABS: Chloride 93 mmol/L (98-107); Potassium 3.5 mmol/L (3.5-5.1); Sodium 143 mmol/L (136-145)
[2021-06-29 05:17] LABS: Anion Gap 17 mmol/L (10-20); Carbon Dioxide 37 mmol/L (23-31)
[2021-06-29 05:24] LABS: Band 12 % (5-11); Lymphocytes 15 % (21-51); MDiff Complete? YES; Monocytes 10 % (0-10); Neutrophil 63 % (42-75)
[2021-06-29] MEDS ORDERED: Potassium Chloride 20 MEQ TAB PO SCH (06:15)
[2021-06-29 06:38] LABS: ALT (SGPT) 66 U/L (8-55); AST (SGOT) 36 U/L (5-34); Albumin 2.3 g/dL (3.4-4.8); Alkaline Phosphatase 135 U/L (40-110); BUN (Urea Nitrogen) 37 mg/dL (8.4-25.7); Bilirubin, Total 0.7 mg/dL (0.2-1.2); Calc. Creatinine Clearance 102 mL/min (70-130); Calcium 8.9 mg/dL (7.8-10.44); Globulin 4.3 g/dL (2.4-3.5); Glucose 214 mg/dL (83-110); Magnesium 2.5 mg/dL (1.6-2.6); Phosphorus 2.3 mg/dL (2.3-4.7); Protein, Total 6.6 g/dL (5.8-8.1)
[2021-06-29] MEDS: HumaLOG 300 UNITS/3 ML VIAL SC PRN ×4 (06:39→20:59)
[2021-06-29] MEDS: Mometasone 200 MCG/Formoterol 5 MCG 120 PUFF INHALER INH SCH ×2 (07:34→18:34)
[2021-06-29] MEDS: Acetaminophen 325 MG TAB PO PRN (07:37)
[2021-06-29] MEDS: Carvedilol 25 MG TAB PO SCH ×2 (08:07→16:36)
[2021-06-29] MEDS: Ascorbic Acid 500 mg Chewable Tablet PO SCH (08:08)
[2021-06-29] MEDS: Folic Acid 1 MG TAB PO SCH (08:09)
[2021-06-29] MEDS: Enoxaparin Sodium 40 MG/0.4 ML SYRINGE SC SCH (08:09)
[2021-06-29] MEDS: Famotidine 20 MG TAB PO SCH ×2 (08:09→20:57)
[2021-06-29] MEDS: Cyanocobalamin (Vitamin B-12) 1,000 MCG TAB PO SCH (08:09)
[2021-06-29] MEDS: NPH, Human Insulin Isophane 300 UNIT/3 ML VIAL SC SCH ×2 (08:10→20:57)
[2021-06-29] MEDS: Multivit, Therapeutic 1 TAB PO SCH (08:10)
[2021-06-29] MEDS: Polyethylene Glycol 3350 17 GM Packet PER TUBE SCH ×2 (08:11→20:58)
[2021-06-29 10:52] LABS: Potassium 3.6 mmol/L (3.5-5.1)
[2021-06-29] MEDS ORDERED: Fentanyl CADD 100 ML ONE (16:59)
[2021-06-29] MEDS: Fentanyl CADD 100 ML IV SCH (17:03)
[2021-06-30 00:03] LABS: Vancomycin, Trough 20.1 ug/mL
[2021-06-30 00:17] VITALS: TEMP 98.8
[2021-06-30] MEDS: Piperacillin/Tazobactam 3.375 GM in Sodium Chloride 0.9% 100 ML IVPB SCH (00:26)
[2021-06-30] MEDS ORDERED: VANCOMYCIN 1.25 GM/250 ML BAG 1.25 GM in Premix Bag 1 BAG IVPB SCH (01:00)
[2021-06-30 02:15] VITALS: BP 77/52
== END 2021-06-30 03:43 | disposition expired | DRG 870 ==
LOC: ERS 08:57 → T4-B 12:39 → IMCU/EMU 06-12 15:18 → CCU 06-12 17:04
PROVIDERS: ADMIT Family Medicine; ATTEND Internal Medicine
PROC: 8E0ZXY6 Isolation (ICD-10-PCS; principal; 2021-06-09)
PROC: 5A1955Z Respiratory Ventilation, Greater than 96 Consecutive Hours (ICD-10-PCS; 2021-06-12)
PROC: 0BH18EZ Insertion of Endotracheal Airway into Trachea, Via Natural or Artificial Opening Endoscopic (ICD-10-PCS; 2021-06-12)
DX: A41.89 Other specified sepsis (principal); U07.1 COVID-19; J12.82 Pneumonia due to coronavirus disease 2019; J96.01 Acute respiratory failure with hypoxia; G92 Toxic encephalopathy; J96.02 Acute respiratory failure with hypercapnia; E87.1 Hypo-osmolality and hyponatremia; J98.11 Atelectasis; R65.20 Severe sepsis without septic shock; Z66 Do not resuscitate; E11.9 Type 2 diabetes mellitus without complications; R94.5 Abnormal results of liver function studies; D69.59 Other secondary thrombocytopenia; E78.5 Hyperlipidemia, unspecified; E66.9 Obesity, unspecified; I10 Essential (primary) hypertension; D63.8 Anemia in other chronic diseases classified elsewhere; Z68.31 Body mass index [BMI] 31.0-31.9, adult; Z79.51 Long term (current) use of inhaled steroids; Z88.2 Allergy status to sulfonamides; Z79.01 Long term (current) use of anticoagulants; Z79.4 Long term (current) use of insulin; Z79.899 Other long term (current) drug therapy; Z79.2 Long term (current) use of antibiotics; R94.31 Abnormal electrocardiogram [ECG] [EKG]; F41.9 Anxiety disorder, unspecified
CPT/HCPCS: 0240U; 36415; 36416; 36600; 70450; 71045; 80048; 80053; 80076; 80202; 82728; 82805; 83615; 83735; 83880; 84100; 84145; 84484; 85007; 85025; 85027; 85379; 86140; 87040; 87070; 87205; 87449; 87899; 93005; 94002; 94003; 94660; 94664; J0360; J0692; J0696; J1100; J1650; J1815; J1940; J2060; J2185; J2543; J2704; J2765; J3010; J3370; J3411; J3480; J3490; J7050; J8540; S0028